=== PATIENT | male | born 1965 | race American Indian/Alaskan Native ===

== ENCOUNTER 2017-01-12 10:49 | Day surgery (SDC) | payer MEDICARE ==
[~2017-01-12 10:49] MED LIST: FLAGYL 500 MG/100 ML 500 MG/100 ML BAG IV SCH
[2017-01-12] MEDS ORDERED: NACL 0.9% 1000 ML 1,000 ML ONE (11:12)
[2017-01-12] MEDS ORDERED: SUBLIMAZE IV PRN (11:19)
[2017-01-12] MEDS ORDERED: ZOFRAN IV PRN (11:19)
[2017-01-12] MEDS ORDERED: DILAUDID IV PRN (11:19)
--- NOTE | 2017-01-12 11:20 | Anesthesia Day of Surgery ---
Anesthesia Day of Surgery - Day of Surgery Patient Examined: Yes Patient H&P Reviewed: Yes Patient is NPO: Yes Beta Blockers: No Cardiac Clearance: No Pulmonary Clearance: No
--- NOTE | 2017-01-12 11:21 | Anesthesia Consultation ---
Anesthesia Consult and Med Hx Date of service: 01/12/17 - Airway Anesthetic Teeth Evaluation: Poor ROM Head & Neck: Inadequate Mental/Hyoid Distance: Inadequate Mallampati Class: Class IV Intubation Access Assessment: Possibly Difficult (markedly micrognathic) - Pulmonary Exam CTA: Yes - Cardiac Exam Cardiac Exam: RRR - Pre-Operative Health Status ASA Pre-Surgery Classification: ASA3 Proposed Anesthetic Plan: General - Pulmonary Hx Smoking: No Hx Sleep Apnea: No (DEEDEE PRE SCREEN HIGH RISK) - Cardiovascular System Hx Hypertension: Yes (X 1 YR) - Central Nervous System Hx Neuromuscular Disorder: Yes - Other Systems Hx Cancer: No
[2017-01-12] MEDS ORDERED: VERSED PO NR (11:25)
[2017-01-12] MEDS ORDERED: XYLOCAINE MPF 2% ONE (11:52)
[2017-01-12] MEDS ORDERED: DIPRIVAN 10 MG/ML IV ONE (11:53)
[2017-01-12] MEDS ORDERED: SUBLIMAZE ONE (11:53)
[2017-01-12] MEDS ORDERED: NACL 0.9% 1000 ML 1,000 ML IV SCH (12:00)
[2017-01-12] MEDS ORDERED: VERSED IV NR (12:00)
[2017-01-12] MEDS ORDERED: PEPCID IV NR (13:00)
[2017-01-12] MEDS ORDERED: VERSED ONE (13:08)
[2017-01-12] MEDS ORDERED: ePHEDrine SULFATE ONE (13:21)
[2017-01-12] MEDS ORDERED: NEO SYNEPHRINE/NS Syringe(OR USE) IV ONE (13:38)
[2017-01-12] MEDS ORDERED: ZOFRAN ONE (13:42)
[2017-01-12] MEDS ORDERED: ROBINUL ONE (13:52)
--- NOTE | 2017-01-12 13:58 | Short Stay Summary ---
Short Stay Documentation Date of service: 01/12/17 - History H&P: obtained from office - Allergies and Medications Current Medications: Allergies No Known Allergies Allergy (Verified 01/06/17 10:25) Home Medications Medication Instructions Recorded Confirmed Last Taken Type Aspirin [Adult Low Dose Aspirin EC] 81 mg PO DAILY 01/06/17 01/12/17 01/06/17 09 :00 History Benazepril HCl [Lotensin] 20 mg PO DAILY 01/06/17 01/06/17 Unknown History Benztropine [Cogentin] 1 mg PO BID 01/06/17 01/12/17 01/12/17 08:00 History Calcium Polycarbophil [Fiber-Caps] 625 mg PO DAILY 01/06/17 01/12/17 01/12/17 08 :00 History Hydrochlorothiazide [Hctz] 12.5 mg PO QDAY 01/06/17 01/12/17 01/12/17 08:00 History Metoprolol [Lopressor TAB] 50 mg PO BID 01/06/17 01/12/17 01/12/17 08:00 History Potassium Chloride [Klor-Con M10] 20 meq PO DAILY 01/06/17 01/12/17 01/12/17 08: 00 History Pravastatin Sodium [Pravastatin] 20 mg PO QHS 01/06/17 01/12/17 01/11/17 21:00 History Quetiapine Fumarate [QUEtiapine 350 mg PO QDAY 01/06/17 01/12/17 01/12/17 08:00 History Fumarate] Active Medications Famotidine (Pepcid) 20 mg IV PREOP NR Stop: 01/12/17 23:59 Last Admin: 01/12/17 12:50 Dose: 20 mg Fentanyl (Sublimaze) 50 mcg IV Q5MIN PRN PRN Reason: Pain , Severe (7-10) Stop: 01/12/17 18:00 Hydromorphone HCl (Dilaudid) 0.25 mg IV Q5MIN PRN PRN Reason: Pain, Moderate (4-6) Stop: 01/12/17 18:00 Metronidazole (Flagyl 500 Mg/100 Ml) 500 mg in 100 mls @ 100 mls/hr IV PREOP KINGS Stop: 01/12/17 23:59 Sodium Chloride (Nacl 0.9% 1000 Ml) 1,000 mls @ 100 mls/hr IV DIRECT KINGS Last Admin: 01/12/17 12:13 Dose: 100 mls/hr Midazolam HCl (Versed) 2 mg IV PREOP NR Stop: 01/12/17 23:59 Midazolam HCl (Versed) 15 mg PO PREOP NR Stop: 01/12/17 23:59 Last Admin: 01/12/17 11:42 Dose: 15 mg Ondansetron HCl (Zofran) 4 mg IV ONCE PRN PRN Reason: Nausea And Vomiting Stop: 01/12/17 18:00 - Brief post op/procedure progress note Date of procedure: 01/12/17 Pre-op diagnosis: elevated psa, bph, rt prostate nodule Post-op diagnosis: same Procedure: cysto, rpg, pus bx Anesthesia: GETA Surgeon: ABIOLA IRIZARRY Estimated blood loss: minimal Pathology: list (prostate cores) Condition: stable - Hospital course Hospital course: ronaldro & leeanne on chart - Disposition Condition at discharge: Stable Disposition: DISCHARGED TO HOME OR SELFCARE Short Stay Discharge Plan Follow up with: KYE GIBSON MD [Primary Care Provider] - 7 Days
[2017-01-12] MEDS ORDERED: WATER FOR IRRIG STERILE IR ONE ×2 (14:18→14:19)
--- NOTE | 2017-01-12 14:37 | Operative Report ---
PREOPERATIVE DIAGNOSIS: Elevated PSA, benign prostatic hypertrophy. POSTOPERATIVE DIAGNOSES: Elevated PSA, benign prostatic hypertrophy, right prostatic nodule. PROCEDURE: Cystoscopy, bilateral retrograde pyelograms, transrectal ultrasound and biopsy of the prostate (30 mL gland). SURGEON: Manjnider Mauricio MD ANESTHESIA: General. ESTIMATED BLOOD LOSS: Minimal. FLUIDS: Crystalloid. COMPLICATIONS: No complications. INDICATIONS: This 51-year-old gentleman who is mentally challenged seen in the office for an elevated PSA from his primary care (Dr. Sherri Chapa), has a strong family history of cancers, mother and father, unknown type, per his caregiver, Maddy Tang, (contact number [phone]). Based on these findings and fact that he is mentally challenged to do this under local anesthetic would not be in his best interest. He presents now for surgical intervention. DESCRIPTION OF PROCEDURE: The patient was taken to the operative suite, placed in a supine position. After adequate general anesthesia, placed in a dorsal lithotomy position, prepped and draped in a sterile fashion. Pancystourethroscopy was performed with a 22 Japanese Storz cystoscope. No urethral abnormalities. His prostate displayed some moderate trilobar prostatic obstruction. His bladder, no tumors or stones were noted. Both ureteral orifices in normal position. Bilateral retrograde pyelograms were obtained with an 8 Japanese [place] catheter and 8 mL of contrast. No filling defects or obstruction. Next, attention was taken to his prostate. Rectal exam, suspicious area on the right side. However, prostate ultrasound revealed a 30 gram gland. No hypoechoic areas could be appreciated. Template biopsy of the prostate was performed, a total of 12 cores, 4 at the base, 4 mid, 4 apex. Two additional cores were taken at the right mid level on this nodular area. He tolerated the procedure well. He was extubated and taken to recovery room. He will go home on [employer] and [employer] and follow up in the office. JOB# [id number] [facility]
--- NOTE | 2017-01-12 14:43 | Post Anesthesia Evaluation ---
- Post Anesthesia Evaluation Patient Participated: No Airway Patent: Yes Stable Respiratory Function: Yes Nausea/Vomiting: No Temp > 96.8F: Yes Pain Manageable: Yes Adequeate Hydration: Yes Anesthesia Complications: No Block Receding Appropriately: Not Applicable
[2017-01-12 15:44] VITALS: BP 137/73
--- NOTE | 2017-01-12 16:00 | Fluoroscopy Report ---
RETROGRADE PYELOGRAM: History: Elevated PSA. There is adequate filling of the ureters and intrarenal collecting systems with no filling defects or anatomic abnormalities identified.
--- NOTE | 2017-01-13 08:44 | Ultrasound Report ---
ULTRASOUND-GUIDE INTRAOPERATIVE HISTORY: Prostate biopsy, elevated PSA level Findings: Endorectal ultrasound guidance was provided by radiology during prostate biopsy by Dr. Mauricio. The prostate gland measures 3.2 x 1.6 x 4.6 cm. Prostate volume measures 12.4 cc. Please correlate with the procedural report by Dr. Mauricio. IMPRESSION: Successful ultrasound guided prostate biopsy.
== END 2017-01-12 15:53 | disposition home or self-care (01) ==
LOC: OR 10:49
PROVIDERS: ATTEND Urology
DX: N40.0 Benign prostatic hyperplasia without lower urinary tract symptoms (principal); E78.5 Hyperlipidemia, unspecified; I10 Essential (primary) hypertension; F79 Unspecified intellectual disabilities; Z79.899 Other long term (current) drug therapy
CPT/HCPCS: 36415; 52005; 55700; 74420; 76998; 84132; 88305; A4217; J2250; J2370; J2405; J2704; J3010; J7030; Q9967; 88342; C1758; C1769

== ENCOUNTER 2019-11-07 11:15 | Day surgery (SDC) | payer MEDICARE ==
[~2019-11-07 11:15] MED LIST changes: -FLAGYL 500 MG/100 ML 500 MG/100 ML BAG IV SCH; +GENTAMICIN/NS 80 MG/100 ML 100 ML IV SCH; +ceFAZolin/Water 2 GM/20 ML 2 GM/20 ML SYRINGE IV SCH
[2019-11-07] MEDS ORDERED: LACTATED RINGERS 1,000 ML IV SCH (11:41)
[2019-11-07] MEDS ORDERED: GENTAMICIN/NS 80 MG/100 ML 100 ML IV ONE (11:47)
--- NOTE | 2019-11-07 12:22 | Anesthesia Consultation ---
Anesthesia Consult and Med Hx Date of service: 11/07/19 - Airway Anesthetic Teeth Evaluation: Poor ROM Head & Neck: Inadequate Mental/Hyoid Distance: Inadequate Mallampati Class: Class IV Intubation Access Assessment: Difficult - Pulmonary Exam CTA: Yes - Cardiac Exam Cardiac Exam: RRR - Pre-Operative Health Status ASA Pre-Surgery Classification: ASA3 Proposed Anesthetic Plan: General - Pre-Anesthesia Comment Pre-Anesthesia Comments: Used #4 LMA with most recent surgery.Pt has decreased neck extension and marked mandibular hypoplasia. - Pulmonary Hx Smoking: No Hx Asthma: No COPD: No Hx Sleep Apnea: No (HIGH RISK ON PRESCREEN) - Cardiovascular System Hx Hypertension: Yes - Central Nervous System Hx Neuromuscular Disorder: Yes (Tardive dyskinesia) Hx Psychiatric Problems: No (MENTALLY CHALLENGED) - Hematic Hx Anemia: No - Other Systems Hx Alcohol Use: No Hx Substance Use: No Hx Cancer: Yes (prostate)
--- NOTE | 2019-11-07 12:29 | Anesthesia Day of Surgery ---
Anesthesia Day of Surgery - Day of Surgery Patient Examined: Yes Patient H&P Reviewed: Yes Patient is NPO: Yes Beta Blockers: Yes (ordered preop)
[2019-11-07] MEDS ORDERED: HYDROmorphone 1 MG/1 ML INJ ONE (12:33)
[2019-11-07] MEDS ORDERED: PROPOFOL 200 MG/20 ML VIAL IV ONE (12:33)
[2019-11-07] MEDS ORDERED: HYDROmorphone 1 MG/1 ML INJ IV PRN (12:35)
[2019-11-07] MEDS ORDERED: ONDANSETRON 4 MG/2 ML INJ IV PRN (12:35)
[2019-11-07] MEDS ORDERED: METOPROLOL TARTRATE 50 MG TAB PO ONE (12:46)
[2019-11-07 12:52] LABS: BUN/Creatinine Ratio 23; Blood Urea Nitrogen 30 mg/dL (9-20); Calcium 9.7 mg/dL (8.4-10.2); Hemolysis Index 6
[2019-11-07] MEDS ORDERED: FAMOTIDINE 20 MG TAB PO NR (13:00)
[2019-11-07] MEDS ORDERED: LIDOCAINE MPF (2%) 20 MG/1 ML VIAL 5 ML ONE (13:36)
[2019-11-07] MEDS ORDERED: PHENYLEPHRINE/NS 1,000 MCG/10 ML SYRINGE (OR USE) IV ONE (13:36)
--- NOTE | 2019-11-07 13:58 | Short Stay Summary ---
Short Stay Documentation Date of service: 11/07/19 - History H&P: obtained from office - Allergies and Medications Current Medications: Allergies No Known Allergies Allergy (Verified 01/06/17 10:25) Home Medications Medication Instructions Recorded Confirmed Last Taken Type Aspirin [Adult Low Dose Aspirin EC] 81 mg PO DAILY 01/06/17 10/30/19 01/06/17 09:00 History Benazepril HCl [Lotensin] 20 mg PO DAILY 01/06/17 10/30/19 Unknown History Benztropine [Cogentin] 1 mg PO BID 01/06/17 10/30/19 01/12/17 08:00 History Calcium Polycarbophil [Fiber-Caps] 625 mg PO BID 01/06/17 10/30/19 01/12/17 08:00 History Metoprolol [Lopressor TAB] 50 mg PO BID 01/06/17 10/30/19 01/12/17 08:00 History Potassium Chloride [Klor-Con M10] 20 meq PO DAILY 01/06/17 10/30/19 01/12/17 08:00 History Pravastatin Sodium [Pravastatin] 20 mg PO QHS 01/06/17 10/30/19 01/11/17 21:00 History Quetiapine Fumarate [QUEtiapine 350 mg PO QDAY 01/06/17 10/30/19 01/12/17 08:00 History Fumarate] hydroCHLOROthiazide [Hctz] 12.5 mg PO QDAY 01/06/17 10/30/19 01/12/17 08:00 History FLUoxetine 20 mg PO DAILY 10/29/19 10/29/19 Unknown History Linzess 290 mg PO DAILY 10/29/19 10/29/19 Unknown History Bicalutamide [Casodex] 50 mg PO DAILY 10/30/19 10/30/19 Unknown History Quetiapine Fumarate [SEROquel XR] 50 mg PO QHS 10/30/19 10/30/19 Unknown History Active Medications Famotidine (Pepcid) 20 mg PO PREOP NR Stop: 11/07/19 23:59 Last Admin: 11/07/19 12:49 Dose: 20 mg Documented by: Hydromorphone HCl (Dilaudid) 0.25 mg IV Q10MIN PRN PRN Reason: Pain, Moderate (4-6) Gentamicin Sulfate/Sodium Chloride (Gentamicin/Ns 80 Mg/100 Ml) 100 mls @ 196.078 mls/hr IV PREOP KINGS; Protocol Stop: 11/07/19 23:00 Cefazolin Sodium (Ancef/Sterile Water 2 Gm/20 Ml) 2 gm in 20 mls @ 80 mls/hr IV PREOP KINGS; Protocol Stop: 11/07/19 23:00 Lactated Ringer's (Lactated Ringers) 1,000 mls @ 100 mls/hr IV DIRECT KIGNS Stop: 11/07/19 23:59 Last Admin: 11/07/19 11:58 Dose: 100 mls/hr Documented by: Ondansetron HCl (Zofran) 4 mg IV ONCE PRN PRN Reason: Nausea And Vomiting - Brief post op/procedure progress note Date of procedure: 11/07/19 Pre-op diagnosis: prostate cancer, BPH Post-op diagnosis: same Procedure: cysto, rpg, pus 30cc, bx x 12 Anesthesia: GETA Surgeon: ABIOLA IRIZARRY Estimated blood loss: minimal Pathology: list (bx x 12) Specimen disposition: to lab Condition: stable - Hospital course Hospital course: bactrim & norco on chart - Disposition Condition at discharge: Stable Disposition: DC-01 TO HOME OR SELFCARE Short Stay Discharge Plan Follow up with: KYE GIBSON MD [Primary Care Provider] - 7 Days
--- NOTE | 2019-11-07 14:14 | Operative Report ---
PREOPERATIVE DIAGNOSES: Prostate cancer and benign prostatic hypertrophy. POSTOPERATIVE DIAGNOSES: Prostate cancer and benign prostatic hypertrophy. PROCEDURE: Cystoscopy, bilateral retrograde pyelograms, transrectal ultrasound (30 mL) and 12 core biopsy (restage). SURGEON: Manjinder Mauricio MD ANESTHESIA: General. ESTIMATED BLOOD LOSS: Minimal. FLUIDS: Crystalloid. COMPLICATIONS: No complications. INDICATIONS: This 53-year-old gentleman known to our service for several years with a diagnosis of prostate cancer that was diagnosed on 01/12/2017. We have elected conservative therapy. He had Garrett 6 in 1 of 12 cores at that time. He also is mentally challenged and his caregiver has been present and up-to-date with care. He presents now for reevaluation. DESCRIPTION OF PROCEDURE: The patient was taken to the operative suite, placed in a supine position. After adequate general anesthesia, he was placed in a dorsal lithotomy position, prepped and draped in a sterile fashion. Pancystourethroscopy was performed with a 22-German Storz cystoscope, no urethral abnormalities. His prostate displayed some mild trilobar obstruction. Bladder, no tumors or stones were noted. Bilateral retrograde pyelograms were obtained with an 8-German Nayan catheter and 8 mL of contrast. No filling defects or obstruction. Next, using an ultrasound probe in 2 planes, ultrasound was performed, no suspicious lesions. Measurements revealed a total of 30 mL. A 12 core biopsy was obtained on the left and right side, 4 cores at the base, mid, and apex of the prostate. The patient tolerated the procedure well and was extubated and taken to recovery room. He will go home on Bactrim and [place] and follow up in the office. JOB# [id number] [facility]
[2019-11-07] MEDS ORDERED: NALOXONE 0.4 MG/1 ML INJ ONE (14:51)
[2019-11-07] MEDS: NALOXONE 0.4 MG/1 ML INJ IV PRN ×2 (14:52→15:00)
--- NOTE | 2019-11-07 15:35 | Ultrasound Report ---
Transrectal prostate Ultrasound HISTORY: ELEVATED PSA. TECHNIQUE: Grayscale and color Doppler imaging performed. COMPARISON: None IMPRESSION: Ultrasound guidance was provided for transrectal prostate biopsy. Please refer to the ope rative note for complete details. The prostate volume was 24 cc. Signer Name: Zan Montes MD Signed: 11/07/2019 3:30 PM Workstation Name: [id number]
--- NOTE | 2019-11-07 17:34 | Fluoroscopy Report ---
Bilateral retrograde pyelography INDICATION: Prostate hypertrophy FINDINGS: 8 views obtained from C-arm exam in the cystoscopy suite show bilateral retrograde pyelogra ms. The renal collecting systems and ureters appear normal bilaterally. No stricture or filling defec ts. There is no hydroureter seen. No definite stones identified. No significant abnormality. IMPRESSION: Negative retrograde pyelography. Total fluoroscopic time was 7 seconds Signer Name: Bharat Conti MD Signed: 11/07/2019 5:29 PM Workstation Name: [id number]
--- NOTE | 2019-11-07 17:40 | Post Anesthesia Evaluation ---
- Post Anesthesia Evaluation Patient Participated: Yes Airway Patent: Yes Stable Respiratory Function: Yes Nausea/Vomiting: No Temp > 96.8F: Yes Pain Manageable: Yes Adequeate Hydration: Yes Anesthesia Complications: No Block Receding Appropriately: Not Applicable Patient on Ventilator: No
[2019-11-07 19:48] VITALS: BP 124/75
== END 2019-11-07 17:35 | disposition home or self-care (01) ==
LOC: OR 11:15
PROVIDERS: ATTEND Urology
DX: C61 Malignant neoplasm of prostate (principal); N40.0 Benign prostatic hyperplasia without lower urinary tract symptoms; E78.00 Pure hypercholesterolemia, unspecified; I10 Essential (primary) hypertension; F32.9 Major depressive disorder, single episode, unspecified; F41.9 Anxiety disorder, unspecified; Z98.890 Other specified postprocedural states; Z79.899 Other long term (current) drug therapy; Z79.82 Long term (current) use of aspirin
CPT/HCPCS: 36415; 52005; 55700; 74420; 76872; 80048; 88305; 88344; C1758; J0690; J1170; J1580; J2310; J2370; J2704; J7120; Q9967; 76942; 88342